=== PATIENT | male | born 1990 | race Caucasian/White ===

== ENCOUNTER 2018-03-08 08:46 | Emergency (ER) | payer OTHER ==
[~2018-03-08] VITALS: Ht 185.4 cm; Wt 104.3 kg
[2018-03-08 08:46] VITALS: BP_SYST 146
[2018-03-08 10:14] VITALS: BP_SYST 132
== END 2018-03-08 10:14 | disposition home or self-care (01) ==
LOC: SED 08:46
DX: S93.401A Sprain of unspecified ligament of right ankle, initial encounter (principal); W18.43XA Slipping, tripping and stumbling without falling due to stepping from one level to another, initial encounter; Y93.01 Activity, walking, marching and hiking; Y92.89 Other specified places as the place of occurrence of the external cause; Y99.8 Other external cause status
CPT/HCPCS: 99284

== ENCOUNTER 2020-09-03 19:12 | Emergency (ER) | payer OTHER, SELFPAY ==
[~2020-09-03] VITALS: Ht 30.5 cm; Wt 0.5 kg
[2020-09-03] MEDS ORDERED: KETOROLAC TROMETHAMINE 30 MG VIAL IVP ONE (20:30)
[2020-09-03] MEDS ORDERED: ONDANSETRON HCL 4 MG/2 ML VIAL IVP ONE (20:30)
[2020-09-03] MEDS ORDERED: NS 1000 ML IV.SOLN IV ONE (20:30)
[2020-09-03] MEDS ORDERED: DIPH-TET-PERTUS Vaccine 0.5 ML VIAL (ADACEL) I.M. ONE (22:00)
[2020-09-04 12:16] LABS: BASOPHILS % (AUTO) 0.9 % (0.0-2.0); HEMATOCRIT 50.2 % (36-54); HEMOGLOBIN 17.2 g/dL (14.0-18.0); LYMPHOCYTES # (AUTO) 0.6 K/uL (1.0-5.5); LYMPHOCYTES % (AUTO) 10.3 % (20.5-51.5); MEAN CORPUSCULAR HEMOGLOBIN 30 pg (27-31); MEAN CORPUSCULAR HGB CONC 34 % (32-36); MEAN CORPUSCULAR VOLUME 87 fL (79.0-98.0); MONOCYTES # (AUTO) 0.6 K/uL (0.0-1.0); MONOCYTES % (AUTO) 9.6 % (1.7-9.3); NEUTROPHILS # (AUTO) 4.6 K/uL (1.8-7.7); NEUTROPHILS % (AUTO) 79.2 % (40.0-70.0); PLATELET COUNT (AUTO) 205 K/uL (130-430); RED BLOOD CELL COUNT(AUTO) 5.76 MIL/uL (4.2-6.2); RED CELL DISTRIBUTION WIDTH 13.4 % (9.0-15.0)
[2020-09-04 15:18] LABS: POTASSIUM 3.4 mmol/L (3.5-5.1)
[2020-09-04 15:19] LABS: ALBUMIN 4.4 g/dL (3.4-4.8); CALCIUM 8.9 mg/dL (8.4-11.0); CREATININE 1.4 mg/dL (0.55-1.30); TOTAL BILIRUBIN 0.7 mg/dL (0.0-1.0)
[2020-09-04 15:20] LABS: WHITE BLOOD COUNT (AUTO) 5.9 K/uL (4.8-10.8)
--- NOTE | 2020-09-04 15:45 | NUR ---
SEE DOWNTIME CHARTING
[2020-09-11] MEDS ORDERED: DEXA6TAB5 PO (08:07)
== END 2020-09-03 22:55 | disposition home or self-care (01) ==
LOC: SED 19:12
DX: U07.1 COVID-19 (principal); K52.9 Noninfective gastroenteritis and colitis, unspecified
CPT/HCPCS: 71045; 74018; 80053; 83690; 84484; 85025; 87040; 87426; 96361; 96374; 96375; 99284; C9803; J1885; J2405; J7030; U0003; 90715

== ENCOUNTER 2020-09-07 09:53 | Inpatient (IN) | payer OTHER, SELFPAY ==
[~2020-09-07] VITALS: Ht 185.4 cm; Wt 120.2 kg
[2020-09-07 09:53] VITALS: BP_SYST 127
[2020-09-07] MEDS ORDERED: METOCLOPRAMIDE HCL 10 MG/2 ML VIAL IVP ONE (10:30)
[2020-09-07] MEDS ORDERED: NACL 0.9% 1,000 ML IV ONE (10:30)
[2020-09-07 10:57] LABS: BASOPHILS % (AUTO) 0.4 % (0.0-2.0); HEMATOCRIT 44.9 % (36-54); HEMOGLOBIN 15.6 g/dL (14.0-18.0); LYMPHOCYTES # (AUTO) 0.5 K/uL (1.0-5.5); LYMPHOCYTES % (AUTO) 9.3 % (20.5-51.5); MEAN CORPUSCULAR HEMOGLOBIN 30 pg (27-31); MEAN CORPUSCULAR HGB CONC 35 % (32-36); MEAN CORPUSCULAR VOLUME 86 fL (79.0-98.0); MONOCYTES # (AUTO) 0.3 K/uL (0.0-1.0); MONOCYTES % (AUTO) 6.8 % (1.7-9.3); NEUTROPHILS # (AUTO) 4.1 K/uL (1.8-7.7); NEUTROPHILS % (AUTO) 83.5 % (40.0-70.0); PLATELET COUNT (AUTO) 162 K/uL (130-430); RED BLOOD CELL COUNT(AUTO) 5.25 MIL/uL (4.2-6.2); RED CELL DISTRIBUTION WIDTH 13.4 % (9.0-15.0); WHITE BLOOD COUNT (AUTO) 4.9 K/uL (4.8-10.8)
[2020-09-07 11:23] LABS: ANION GAP 9 (5-15); CALCIUM 8.3 mg/dL (8.4-11.0); CHLORIDE 98 mmol/L (98-107); CREATININE 1.36 mg/dL (0.55-1.30); GLUCOSE 103 mg/dL (70-99); POTASSIUM 3.4 mmol/L (3.5-5.1); SODIUM SERUM 133 mmol/L (136-145); UREA NITROGEN, BLOOD 14 mg/dL (8-21)
[2020-09-07 11:25] LABS: C-REACTIVE PROTEIN QUANT 6.8 mg/dL (0-0.5); GFR AFRICAN AMERICAN 79 mL/min (>90)
[2020-09-07 11:31] LABS: ALANINE AMINOTRANSFERASE 80 U/L (12-78); ALBUMIN 3.5 g/dL (3.4-4.8); ASPARTATE AMINOTRANSFERASE 53 U/L (10-37); LACTATE DEHYDROGENASE 279 U/L (85-227); LIPASE 905 U/L (73-393); TOTAL BILIRUBIN 0.8 mg/dL (0.0-1.0)
[2020-09-07] MEDS ORDERED: DEXAMETHASONE SOD PHOSPHATE 4 MG/ML VIAL IVP ONE (14:30)
[2020-09-07] MEDS ORDERED: MORPHINE 2 MG/ML INJ. SYRINGE IVP PRN (15:00)
[2020-09-07] MEDS ORDERED: HYDROcodone/ACETAMIN 7.5-325 MG TAB PO PRN (15:00)
[2020-09-07] MEDS ORDERED: ONDANSETRON HCL 4 MG/2 ML VIAL IVP PRN (15:00)
[2020-09-07] MEDS ORDERED: ALBUTEROL MDI INHALATION 8 GM INH INH PRN (15:00)
[2020-09-07] MEDS ORDERED: DOCUSATE SODIUM 100 MG/10 ML UDC PO PRN (15:00)
[2020-09-07 15:09] VITALS: BP_SYST 127
[2020-09-07] MEDS ORDERED: ASCORBIC ACID 500 MG TABLET PO ONE (15:30)
[2020-09-07] MEDS ORDERED: PANTOPRAZOLE SODIUM 40 MG TAB PO ONE (15:30)
[2020-09-07] MEDS: D5NS 1,000 ML IV SCH ×2 (15:42→21:05)
[2020-09-07] MEDS: cefTRIAXone 1 GM in D5W 50 ML IV SCH (15:43)
[2020-09-07] MEDS: AZITHROMYCIN 250 MG TABLET PO SCH (15:43)
[2020-09-07 16:22] LABS: FREE T4 (FREE THYROXINE) 0.9 ng/dL (0.6-1.6); PHOSPHORUS 2.5 mg/dL (2.7-4.5); THYROID STIMULATING HORMONE 0.95 uIu/mL (0.34-4.82)
[2020-09-07 16:40] LABS: PROTHROMBIN TIME 10.7 SECS (9.5-12.5)
[2020-09-07 16:41] VITALS: BP_SYST 127
[2020-09-07 17:19] VITALS: BP_SYST 127
[2020-09-07] MEDS: POTASSIUM CHLORIDE 20 MEQ TAB.PRT.SR PO PRN (17:20)
[2020-09-07 20:30] VITALS: BP_SYST 124
[2020-09-07] MEDS: HEPARIN SODIUM,PORCINE 5,000 UNITS/ML VIAL SUBCUT SCH (21:00)
[2020-09-08 00:05] VITALS: BP_SYST 132
[2020-09-08] MEDS: D5NS 1,000 ML IV SCH ×2 (03:13→09:18)
[2020-09-08 07:34] LABS: BASOPHILS % (AUTO) 0.2 % (0.0-2.0); HEMATOCRIT 42.3 % (36-54); HEMOGLOBIN 14.5 g/dL (14.0-18.0); LYMPHOCYTES # (AUTO) 0.5 K/uL (1.0-5.5); MEAN CORPUSCULAR HEMOGLOBIN 30 pg (27-31); MEAN CORPUSCULAR HGB CONC 34 % (32-36); MEAN CORPUSCULAR VOLUME 87 fL (79.0-98.0); MONOCYTES # (AUTO) 0.4 K/uL (0.0-1.0); NEUTROPHILS # (AUTO) 6.2 K/uL (1.8-7.7); NEUTROPHILS % (AUTO) 87.8 % (40.0-70.0); PLATELET COUNT (AUTO) 174 K/uL (130-430); RED BLOOD CELL COUNT(AUTO) 4.88 MIL/uL (4.2-6.2); WHITE BLOOD COUNT (AUTO) 7.1 K/uL (4.8-10.8)
[2020-09-08 07:55] VITALS: BP_SYST 129
[2020-09-08 08:08] LABS: CALCIUM 8.2 mg/dL (8.4-11.0); CREATININE 0.97 mg/dL (0.55-1.30); POTASSIUM 3.9 mmol/L (3.5-5.1)
[2020-09-08] MEDS: DECADRON 4 MG TABLET PO SCH ×2 (08:11→10:28)
[2020-09-08] MEDS: PANTOPRAZOLE SODIUM 40 MG TAB PO SCH ×2 (08:12→10:28)
[2020-09-08] MEDS: ASCORBIC ACID 500 MG TABLET PO SCH ×2 (08:12→10:29)
[2020-09-08] MEDS: AZITHROMYCIN 250 MG TABLET PO SCH ×2 (08:16→10:28)
[2020-09-08 08:26] LABS: ERYTHROCYTE SEDIMENTATION RATE 42 MM/HR (0-15)
[2020-09-08 08:29] LABS: C-REACTIVE PROTEIN QUANT 6.2 mg/dL (0-0.5)
[2020-09-08] MEDS ORDERED: IPRATROPIUM/ALBUTEROL SULFATE 3 ML AMPUL.NEB (DUONEB) INH PRN (09:15)
[2020-09-08] MEDS: LR 1,000 ML IV SCH ×3 (09:45→22:00)
[2020-09-08] MEDS: HEPARIN SODIUM,PORCINE 5,000 UNITS/ML VIAL SUBCUT SCH (10:28)
[2020-09-08] MEDS ORDERED: IPRATROPIUM/ALBUTEROL SULFATE 3 ML AMPUL.NEB (DUONEB) INH SCH (11:00)
[2020-09-08 12:00] VITALS: BP_SYST 127
[2020-09-08 16:00] VITALS: BP_SYST 123
[2020-09-08] MEDS: cefTRIAXone 1 GM in D5W 50 ML IV SCH (16:45)
[2020-09-08] MEDS ORDERED: IVERMECTIN 3 MG TABLET PO ONE (18:00)
[2020-09-08 20:15] VITALS: BP_SYST 125
[2020-09-08] MEDS: ZOLPIDEM TARTRATE 5 MG TABLET PO PRN (22:14)
[2020-09-08] MEDS: ENOXAPARIN SODIUM 40 MG/0.4 ML SYRINGE SUBCUT SCH (22:15)
[2020-09-09] VITALS (7 sets, daily range): BP systolic 126–140
[2020-09-09] MEDS: ACETAMINOPHEN 500 MG TABLET PO PRN ×2 (01:55→08:29)
[2020-09-09] MEDS: LR 1,000 ML IV SCH ×4 (04:00→21:40)
[2020-09-09] MEDS ORDERED: guaiFENesin/DEXTROMETHORPHAN 10 ML UDC PO PRN (07:45)
[2020-09-09 08:11] LABS: BASOPHILS % (AUTO) 0.5 % (0.0-2.0); HEMATOCRIT 40.3 % (36-54); HEMOGLOBIN 13.8 g/dL (14.0-18.0); LYMPHOCYTES # (AUTO) 0.6 K/uL (1.0-5.5); LYMPHOCYTES % (AUTO) 6.9 % (20.5-51.5); MEAN CORPUSCULAR HEMOGLOBIN 30 pg (27-31); MEAN CORPUSCULAR HGB CONC 34 % (32-36); MEAN CORPUSCULAR VOLUME 87 fL (79.0-98.0); MONOCYTES # (AUTO) 0.5 K/uL (0.0-1.0); MONOCYTES % (AUTO) 5.2 % (1.7-9.3); NEUTROPHILS # (AUTO) 7.9 K/uL (1.8-7.7); NEUTROPHILS % (AUTO) 87.4 % (40.0-70.0); PLATELET COUNT (AUTO) 184 K/uL (130-430); RED BLOOD CELL COUNT(AUTO) 4.65 MIL/uL (4.2-6.2); RED CELL DISTRIBUTION WIDTH 13.7 % (9.0-15.0)
[2020-09-09 08:18] LABS: C-REACTIVE PROTEIN QUANT 8.4 mg/dL (0-0.5); CALCIUM 8.5 mg/dL (8.4-11.0); CREATININE 1.02 mg/dL (0.55-1.30); POTASSIUM 3.5 mmol/L (3.5-5.1)
[2020-09-09] MEDS: DECADRON 4 MG TABLET PO SCH (08:26)
[2020-09-09] MEDS: PANTOPRAZOLE SODIUM 40 MG TAB PO SCH (08:26)
[2020-09-09] MEDS: ASCORBIC ACID 500 MG TABLET PO SCH (08:26)
[2020-09-09] MEDS: AZITHROMYCIN 250 MG TABLET PO SCH (08:27)
[2020-09-09 09:32] LABS: ERYTHROCYTE SEDIMENTATION RATE 60 MM/HR (0-15)
[2020-09-09] MEDS: ENOXAPARIN SODIUM 40 MG/0.4 ML SYRINGE SUBCUT SCH ×2 (09:43→21:40)
[2020-09-09] MEDS: cefTRIAXone 1 GM in D5W 50 ML IV SCH (15:30)
[2020-09-09] MEDS: ZOLPIDEM TARTRATE 5 MG TABLET PO PRN (21:38)
[2020-09-10 01:00] VITALS: BP_SYST 128
[2020-09-10] MEDS: LR 1,000 ML IV SCH ×3 (01:45→09:48)
[2020-09-10 05:00] VITALS: BP_SYST 136
[2020-09-10] MEDS: POTASSIUM CHLORIDE 20 MEQ TAB.PRT.SR PO PRN (05:28)
[2020-09-10 07:16] LABS: BASOPHILS % (AUTO) 0.3 % (0.0-2.0); HEMATOCRIT 40.4 % (36-54); HEMOGLOBIN 13.9 g/dL (14.0-18.0); LYMPHOCYTES # (AUTO) 0.6 K/uL (1.0-5.5); LYMPHOCYTES % (AUTO) 6.1 % (20.5-51.5); MEAN CORPUSCULAR HEMOGLOBIN 30 pg (27-31); MEAN CORPUSCULAR HGB CONC 34 % (32-36); MEAN CORPUSCULAR VOLUME 87 fL (79.0-98.0); MONOCYTES # (AUTO) 0.7 K/uL (0.0-1.0); MONOCYTES % (AUTO) 6.7 % (1.7-9.3); NEUTROPHILS # (AUTO) 8.7 K/uL (1.8-7.7); NEUTROPHILS % (AUTO) 86.9 % (40.0-70.0); PLATELET COUNT (AUTO) 218 K/uL (130-430); RED BLOOD CELL COUNT(AUTO) 4.65 MIL/uL (4.2-6.2); RED CELL DISTRIBUTION WIDTH 13.4 % (9.0-15.0)
[2020-09-10 07:53] LABS: CALCIUM 8.5 mg/dL (8.4-11.0); CREATININE 0.89 mg/dL (0.55-1.30)
[2020-09-10 08:00] VITALS: BP_SYST 132
[2020-09-10 08:01] LABS: ERYTHROCYTE SEDIMENTATION RATE 66 MM/HR (0-15)
[2020-09-10 08:28] LABS: C-REACTIVE PROTEIN QUANT 9.6 mg/dL (0-0.5)
[2020-09-10 09:41] VITALS: BP_SYST 136
[2020-09-10] MEDS: PANTOPRAZOLE SODIUM 40 MG TAB PO SCH (09:47)
[2020-09-10] MEDS: ASCORBIC ACID 500 MG TABLET PO SCH (09:47)
[2020-09-10] MEDS: AZITHROMYCIN 250 MG TABLET PO SCH (09:47)
[2020-09-10] MEDS: DECADRON 4 MG TABLET PO SCH (09:47)
[2020-09-10] MEDS: ENOXAPARIN SODIUM 40 MG/0.4 ML SYRINGE SUBCUT SCH (10:01)
[2020-09-10] MEDS ORDERED: LR 1,000 ML IV SCH (10:15)
[2020-09-10 12:00] VITALS: BP_SYST 130
[2020-09-10 14:31] VITALS: BP_SYST 130
[2020-09-10] MEDS ORDERED: ASPI-862 PO (15:57)
[2020-09-10] MEDS ORDERED: AZIT200S42 PO (16:09)
[2020-09-10] MEDS ORDERED: DEC4 PO (16:09)
[2020-09-10] MEDS: cefTRIAXone 1 GM in D5W 50 ML IV SCH (16:25)
[2020-09-10] MEDS ORDERED: ASPI-858 PO (17:00)
[2020-09-10] MEDS ORDERED: ASCO500C18 PO (17:00)
[2020-09-10] MEDS ORDERED: DEXA6TAB5 PO (17:00)
[2020-09-10] MEDS ORDERED: AZIT-62 PO (17:00)
[2020-09-11] MEDS ORDERED: DEXA6TAB5 PO (08:07)
== END 2020-09-10 17:40 | disposition home or self-care (01) | DRG 177 ==
LOC: SED 09:53 → STU 14:20 → SMU 09-09 12:20
PROVIDERS: ADMIT Family Medicine; ATTEND Family Medicine
PROC: XW13325 Transfusion of Convalescent Plasma (Nonautologous) into Peripheral Vein, Percutaneous Approach, New Technology Group 5 (ICD-10-PCS; principal; 2020-09-09)
DX: U07.1 COVID-19 (principal); K85.90 Acute pancreatitis without necrosis or infection, unspecified; N17.0 Acute kidney failure with tubular necrosis; J12.89 Other viral pneumonia; J96.01 Acute respiratory failure with hypoxia; E87.1 Hypo-osmolality and hyponatremia; E66.9 Obesity, unspecified; K29.70 Gastritis, unspecified, without bleeding; E87.6 Hypokalemia; R74.01 Elevation of levels of liver transaminase levels; K76.0 Fatty (change of) liver, not elsewhere classified; Z68.35 Body mass index [BMI] 35.0-35.9, adult; Z86.19 Personal history of other infectious and parasitic diseases
CPT/HCPCS: 36415; 71045; 76376; 76705; 78226; 80048; 80053; 80061; 82150-TC; 82728; 83036; 83605; 83615-TC; 83690-TC; 83735-TC; 83880; 84100-TC; 84439; 84443-TC; 84484; 85025; 85379; 85610-TC; 85651-TC; 85730-TC; 86140; 86886; 86900; 86901; 93005; 94760; 96361; 96374; 96375; 99291; A9537; G0378; J0696; J1644; J1650; J7060; J8540; P9017; Q0144; U0003